=== PATIENT | male | born 1965 | race Caucasian/White ===

== ENCOUNTER 2019-01-04 13:57 | Emergency (ER) | payer OTHER ==
[~2019-01-04] VITALS: Ht 170.2 cm; Wt 81.6 kg
[2019-01-04 14:05] VITALS: BP 143/76
--- NOTE | 2019-01-04 14:10 | NUR ---
PATIENT AMBULATED TO ER BED 2.
[2019-01-04] MEDS ORDERED: NACL 0.9% 1,000 ML IV ONE (14:15)
[2019-01-04] MEDS ORDERED: ALBUTEROL SULFATE/IPRATROPIU 3 ML SOL IH ONE (14:20)
--- NOTE | 2019-01-04 14:20 | NUR ---
FLU SWAB COLLECTED AND SENT TO LAB.
--- NOTE | 2019-01-04 14:25 | NUR ---
PT IS A 53 Y/O MALE WHO PRESENTS TO THE ED C/O GEN WEAKNESS. PT STATES THAT IT HAS BEEN GOING ON X4 DAYS, IT STARTED WITH CONSTANT COUGH, WITH RUNNY NOSE. LUNG SOUNDS DIMINISHED IN BILATERAL BASES. PT ALSO REPORTS FEELING BLOATED, LAST BM: 01/02/19. PT DENIES CP, N/V/D. PT AWAKE AND ALERT, RR EVEN/UNLABORED. PT REPOSITIONED FOR COMFORT, BED IN LOWEST POSITION. ER MD DR. ARELLANO NOTIFIED. WILL CONTINUE TO MONITOR PMH: NONE
[2019-01-04 14:31] LABS: BASOPHILS % (AUTO) 0.5 % (0.0-2.0); EOSINOPHILS % (AUTO) 0.3 % (0.0-4.0); HEMATOCRIT 46.8 % (36-52); HEMOGLOBIN 15.4 g/dL (12.0-18.0); LYMPHOCYTES # (AUTO) 0.8 K/uL (2.0-11.5); MEAN CORPUSCULAR HEMOGLOBIN 29 pg (27-31); MEAN CORPUSCULAR HGB CONC 33 g/dL (33-37); MEAN CORPUSCULAR VOLUME 88.4 fL (80-94); MONOCYTES # (AUTO) 0.9 K/uL (0.8-1.0); NEUTROPHILS # (AUTO) 3.6 K/uL (1.8-7.7); NEUTROPHILS % (AUTO) 67.2 % (42.2-75.2); PLATELET COUNT (AUTO) 255 K/uL (140-450); RED BLOOD CELL COUNT(AUTO) 5.29 MIL/uL (4.20-6.10); RED CELL DISTRIBUTION WIDTH 13.3 % (11.6-13.7); WHITE BLOOD COUNT (AUTO) 5.4 K/uL (4.8-10.8)
--- NOTE | 2019-01-04 14:35 | NUR ---
RT AT BEDSIDE FOR INTERVENTION.
[2019-01-04 14:46] LABS: ANION GAP 14.1 (8-16); CARBON DIOXIDE 24.7 mmol/L (21-32); POTASSIUM 3.8 mmol/L (3.5-5.1)
[2019-01-04 14:52] LABS: ALBUMIN 3.3 g/dL (3.4-5.0); TOTAL BILIRUBIN 0.2 mg/dL (0.0-1.0)
--- NOTE | 2019-01-04 15:42 | NUR ---
RETOOK PT VITALS, PT HAD TEMP OF 101.5, ER MD DR. ARELLANO MADE AWARE, OK TO DISCHARGE. NO MEDS GIVEN.
[2019-01-04 15:44] VITALS: BP 141/84
--- NOTE | 2019-01-04 15:44 | NUR ---
Patient discharged with v/s stable. Written and verbal after care instructions given and explained. Patient alert, oriented and verbalized understanding of instructions. Ambulatory with steady gait. All questions addressed prior to discharge. ID band removed. Patient advised to follow up with PMD. Rx of ALBUTEROL 90MCG, PREDNISONE 50MG AND AZITHROMYCIN 250MG given. Patient educated on indication of medication including possible reaction and side effects. Opportunity to ask questions provided and answered.
== END 2019-01-04 15:44 | disposition home or self-care (01) ==
LOC: MED 13:57
DX: J20.9 Acute bronchitis, unspecified (principal); F17.200 Nicotine dependence, unspecified, uncomplicated
CPT/HCPCS: 36415; 71045; 80053; 85025; 87804; 94640; 99284; J7030; J7620; Q0092

== ENCOUNTER 2023-02-16 16:08 | Inpatient (IN) | payer BC, OTHER ==
[~2023-02-16] VITALS: Ht 170.2 cm; Wt 81.6 kg
[2023-02-16 16:16] VITALS: BP 157/89
--- NOTE | 2023-02-16 17:08 | NUR ---
Patient arrived to ED 5 for c/o shortness of breath. Patient said yesterday he had some issues breathing yesterday and took inhaler for albuterol yesterday it helped. Patient said he tried taking today and it did not help. at bedside to MSE patient. Will continue to monitor. Call light within reach.
--- NOTE | 2023-02-16 17:20 | NUR ---
Dr. Bautista at bedside to MSE patient.
[2023-02-16] MEDS ORDERED: cefTRIAXone 1,000 MG in DEXT 5% MINI-BAG PLUS 50 ML IV ONE (17:25)
[2023-02-16] MEDS ORDERED: ALBUTEROL 0.083% 2.5 MG/3 ML NEBU INH ONE (17:25)
[2023-02-16] MEDS ORDERED: NACL 0.9% 2,000 ML IV SCH (17:25)
[2023-02-16] MEDS ORDERED: IPRATROPIUM 0.02% 0.5 MG/2.5 ML NEBU INH ONE (17:25)
[2023-02-16] MEDS ORDERED: methylPREDNISolone SS 125 MG/2 ML VIAL IVP ONE (17:25)
[2023-02-16 17:46] LABS: BASOPHILS % (AUTO) 0.3 % (0.0-2.0); EOSINOPHILS % (AUTO) 0.1 % (0.0-4.0); HEMATOCRIT 43.2 % (36-52); HEMOGLOBIN 14.5 g/dL (12.0-18.0); LYMPHOCYTES # (AUTO) 0.9 K/uL (2.0-11.5); LYMPHOCYTES % (AUTO) 6.4 % (20.5-51.1); MEAN CORPUSCULAR HEMOGLOBIN 30 pg (27-31); MEAN CORPUSCULAR HGB CONC 34 g/dL (33-37); MEAN CORPUSCULAR VOLUME 87.6 fL (80-94); MONOCYTES # (AUTO) 1.6 K/uL (0.8-1.0); MONOCYTES % (AUTO) 10.7 % (1.7-9.3); NEUTROPHILS % (AUTO) 82.5 % (42.2-75.2); PLATELET COUNT (AUTO) 273 K/uL (140-450); RED BLOOD CELL COUNT(AUTO) 4.93 MIL/uL (4.20-6.10); RED CELL DISTRIBUTION WIDTH 13.9 % (11.6-13.7); WHITE BLOOD COUNT (AUTO) 14.6 K/uL (4.8-10.8)
--- NOTE | 2023-02-16 17:49 | NUR ---
X-RAY AT BEDSIDE.
[2023-02-16] MEDS ORDERED: cefTRIAXone 1,000 MG VIAL ONE (17:56)
[2023-02-16 18:07] LABS: ALBUMIN 3.5 g/dL (3.4-5.0); ANION GAP 14.1 (8-16); CARBON DIOXIDE 26.9 mmol/L (21-32); CREATININE 0.8 mg/dL (0.6-1.3); TOTAL BILIRUBIN 0.5 mg/dL (0.0-1.0)
--- NOTE | 2023-02-16 19:11 | NUR ---
SARAH AND FLU SWABS OBTAINED, WALKED TO LAB.
--- NOTE | 2023-02-16 19:32 | NUR ---
Report given to mold shifter RN for continuity of care. Patient in stable condition.
--- NOTE | 2023-02-16 19:34 | NUR ---
Report given to carpenter apprentice RN for continuity of care. Patient in stable condition.
--- NOTE | 2023-02-16 20:09 | NUR ---
REPOR FR MCMANUS RN, PT STS HES FEELING BETTER, PT AND UPDATED WITH PLAN OF CARE
[2023-02-16] MEDS ORDERED: AZITHROMYCIN 500 MG in DEXTROSE 5% 250 ML IV SCH (20:35)
[2023-02-16] MEDS ORDERED: HYDROcodone/APAP 7.5/325 MG 1 TAB PO PRN (20:35)
[2023-02-16] MEDS ORDERED: ZOLPIDEM 5 MG TAB PO PRN (20:35)
[2023-02-16] MEDS ORDERED: POTASSIUM CHLORIDE 10 MEQ TABER PO PRN (20:35)
[2023-02-16] MEDS ORDERED: ONDANSETRON 4 MG/2 ML VIAL IM/IVP PRN (20:35)
[2023-02-16] MEDS ORDERED: ACETAMINOPHEN 325 MG TAB PO PRN (20:35)
[2023-02-16] MEDS ORDERED: DOCUSATE SODIUM 100 MG GELCAP PO PRN (20:35)
[2023-02-16] MEDS ORDERED: guaiFENesin DM 200/20 MG-10 ML 10 ML UDC PO PRN (20:35)
[2023-02-16 21:55] LABS: APPEARANCE,URINE CLEAR (CLEAR); BILIRUBIN,URINE NEGATIVE (NEGATIVE); BLOOD, URINE 1+ (NEGATIVE); COLOR,URINE YELLOW (YELLOW); LEUKOCYTE ESTERASE ,URINE NEGATIVE (NEGATIVE); NITRITE, URINE NEGATIVE (NEGATIVE); UGLUCOSE NEGATIVE (NEGATIVE)
[2023-02-16 22:14] LABS: BARBITURATE, URINE NEGATIVE ng/ml (NEG <=200); BENZODIAZEPINE, URINE NEGATIVE ng/mL (NEG <=200); CANNABINOID, URINE NEGATIVE ng/mL (NEG <=50); COCAINE, URINE NEGATIVE ng/mL (NEG <=300); OPIATE, URINE NEGATIVE ng/mL (NEG <=2000); PHENCYCLIDINE SCREEN,URINE NEGATIVE ng/mL (NEG <=25)
[2023-02-16 22:31] LABS: AMYLASE 19 U/L (25-115); LIPASE 54 U/L (73-393); MAGNESIUM 2.1 mg/dL (1.8-2.4); PHOSPHORUS 3.3 mg/dL (2.5-4.9); THYROID STIMULATING HORMONE 0.64 uIU/mL (0.34-3.74)
[2023-02-16 22:33] LABS: PROTHROMBIN TIME 11.2 secs (10.8-13.4)
[2023-02-16 22:33] LABS: WBC,URINE NONE SEEN /HPF (0-5)
--- NOTE | 2023-02-16 22:44 | NUR ---
Patient will be admitted to care of [facility]. Admited to TELE . Will go to [id number]. Belongings list completed. Report to CASANDRA VALERO.
[2023-02-16] MEDS ORDERED: AZITHROMYCIN 500 MG INJ VIAL IV ONE (23:16)
--- NOTE | 2023-02-16 23:55 | NUR ---
Patient's Plan of Care was discussed and reviewed with GLENN GUAJARDO:
--- NOTE | 2023-02-16 23:55 | NUR ---
RECEIVED REPORT FROM ER NURSE FOR CONTINUITY OF CARE. PT IS A&O X4, EXPERIENCING SOB WHEN WALKING TO THE BATHROOM AND BED. CURRENTLY ON 2L NASAL CANULA. PT HAS IV SITE LOCATED AT LEFT AC 20 GAUGE, INTACT AND PATENT. PT STABLE AT THIS TIME, WILL MONITOR FREQUENTLY THROUGHOUT SHIFT.
[2023-02-17] VITALS: BP 158/88
[2023-02-17] MEDS: methylPREDNISolone SS 40 MG/ML VIAL IVP SCH ×5 (00:06→23:18)
--- NOTE | 2023-02-17 03:37 | NUR ---
PT ASLEEP. BREATH SOUNDS LABORED. NOTICEABLE CHEST RISE AND FALL. NO APPARENT SIGNS OF DISTRESS NOTED. WILL CONTINUE MONITORING THE PT.
[2023-02-17 04:00] VITALS: BP 138/81
--- NOTE | 2023-02-17 05:41 | NUR ---
BS COURSE. SOB ON EXERTION POST BATHROOM USE. ADVISED PT TO USE URINAL INSTEAD OF WALKING TO THE BATHROOM WITH NO O2. PT STABLE ON 2L WITH SPO2 95% AT REST.
--- NOTE | 2023-02-17 06:41 | NUR ---
PT SLEPT WELL THROUGHOUT SHIFT, WILL ENDORSE TO DAY SHIFT NURSE FOR CONTINUITY OF CARE.
--- NOTE | 2023-02-17 07:10 | NUR ---
RECEIVED REPORT FROM NIGHTSHIFT NURSE CASANDRA FOR CONTINUITY OF CARE. PT IN STABLE CONDITION.
[2023-02-17 07:23] LABS: HEMATOCRIT 45.3 % (36-52); HEMOGLOBIN 15.1 g/dL (12.0-18.0); LYMPHOCYTES # (AUTO) 0.6 K/uL (2.0-11.5); LYMPHOCYTES % (AUTO) 4.3 % (20.5-51.1); MEAN CORPUSCULAR HEMOGLOBIN 29 pg (27-31); MEAN CORPUSCULAR HGB CONC 33 g/dL (33-37); MEAN CORPUSCULAR VOLUME 88.1 fL (80-94); MONOCYTES # (AUTO) 0.3 K/uL (0.8-1.0); MONOCYTES % (AUTO) 1.8 % (1.7-9.3); NEUTROPHILS # (AUTO) 13.5 K/uL (1.8-7.7); PLATELET COUNT (AUTO) 312 K/uL (140-450); RED BLOOD CELL COUNT(AUTO) 5.14 MIL/uL (4.20-6.10); WHITE BLOOD COUNT (AUTO) 14.3 K/uL (4.8-10.8)
[2023-02-17 07:39] LABS: CREATININE 0.7 mg/dL (0.6-1.3); POTASSIUM 3.9 mmol/L (3.5-5.1)
[2023-02-17 07:45] LABS: CARBON DIOXIDE 26.9 mmol/L (21-32)
[2023-02-17 08:00] VITALS: BP 130/78
[2023-02-17 08:12] LABS: NEUTROPHILS % (AUTO) 93.9 % (42.2-75.2)
[2023-02-17] MEDS: PANTOPRAZOLE 40 MG TABEC PO SCH (08:17)
--- NOTE | 2023-02-17 08:17 | NUR ---
PT DENIED PAIN OR CHEST PAIN AND SOB HAS LESSENED; HOWEVER, WHEEZING STILL PROMINENT ON INHALATION/EXHALATION.
--- NOTE | 2023-02-17 10:30 | NUR ---
DR. NELSON IN TO SEE PT. NEW ORDERS FOR Q6H BREATHING TX PLACED.
[2023-02-17] MEDS ORDERED: AZITHROMYCIN 500 MG in DEXTROSE 5% 250 ML IV SCH ×2 (10:40→21:00)
[2023-02-17 12:00] VITALS: BP 153/92
--- NOTE | 2023-02-17 12:30 | NUR ---
PT CURRENTLY SLEEPING, NO SIGNS OF DISTRESS NOTED AT TIME.
[2023-02-17] MEDS: ALBUTEROL SULFATE/IPRATROPIU 3 ML SOL IH SCH ×2 (13:54→19:00)
--- NOTE | 2023-02-17 14:30 | NUR ---
PT DENIES PAIN AT THIS TIME, PT ENDORSED LESS DIFFICULTY BREATHING
[2023-02-17 16:00] VITALS: BP 119/76
--- NOTE | 2023-02-17 16:50 | NUR ---
PT CURRENTLY SLEEPING, NO SIGN OR PAIN OR DISTRESS.
--- NOTE | 2023-02-17 18:50 | NUR ---
PT IV WAS PARTIALLY OUT OF ARM, NO BLEEDING NOTED WHEN REMOVED. NEW 20G IV PLACE ON RIGHT AC.
--- NOTE | 2023-02-17 19:07 | NUR ---
RECEIVED REPORT FROM DAY SHIFT NURSE FOR CONTINUITY OF CARE. PT AWAKE AT THIS TIME, FAMILY AT BEDSIDE. REPORTS EXPERIENCING LESS EPISODES OF SOB, STATES HE IS READY TO GO HOME. STILL ON 2L NC, SATING AT 96%. WILL CONTINUE WITH COMFORT CARE. PT POSSIBLE DC TOMORROW WITH INHALER/STEROIDS.
--- NOTE | 2023-02-17 19:16 | NUR ---
ENDORSED PT TO NIGHTSHIFT NURSE CASANDRA Martin FOR CONTINUITY OF CARE. PT IN STABLE CONDITION.
[2023-02-17 20:00] VITALS: BP 119/67
--- NOTE | 2023-02-17 20:00 | NUR ---
Patient's Plan of Care was discussed and reviewed with CASANDRA ELIZABETH:
--- NOTE | 2023-02-17 23:22 | NUR ---
PT ASLEEP AT THIS TIME. ZITHROMAX IV INFUSING WITH NO COMPLICATIONS. WILL FLUSH LINE WHEN COMPLETE.
[2023-02-18] VITALS: BP 141/87
[2023-02-18] MEDS: ALBUTEROL SULFATE/IPRATROPIU 3 ML SOL IH SCH ×2 (00:51→08:25)
--- NOTE | 2023-02-18 02:36 | NUR ---
MAKING ROUNDS, PT SITTING AT BEDSIDE, STATES HE WANTED TO SEE IF HE WOULD FEEL DIZZY. REPORTS NO DIZZINESS. WILL CONTINUE MONITORING THE PT.
[2023-02-18 04:00] VITALS: BP 138/90
[2023-02-18] MEDS: methylPREDNISolone SS 40 MG/ML VIAL IVP SCH ×2 (05:06→12:31)
[2023-02-18 06:39] LABS: BASOPHILS % (AUTO) 0.1 % (0.0-2.0); HEMATOCRIT 42.6 % (36-52); HEMOGLOBIN 14.3 g/dL (12.0-18.0); LYMPHOCYTES # (AUTO) 0.7 K/uL (2.0-11.5); LYMPHOCYTES % (AUTO) 5.2 % (20.5-51.1); MEAN CORPUSCULAR HEMOGLOBIN 30 pg (27-31); MEAN CORPUSCULAR HGB CONC 34 g/dL (33-37); MEAN CORPUSCULAR VOLUME 88.2 fL (80-94); MONOCYTES # (AUTO) 0.6 K/uL (0.8-1.0); MONOCYTES % (AUTO) 4.2 % (1.7-9.3); NEUTROPHILS # (AUTO) 12.4 K/uL (1.8-7.7); NEUTROPHILS % (AUTO) 90.5 % (42.2-75.2); PLATELET COUNT (AUTO) 312 K/uL (140-450); RED BLOOD CELL COUNT(AUTO) 4.83 MIL/uL (4.20-6.10); RED CELL DISTRIBUTION WIDTH 13.4 % (11.6-13.7); WHITE BLOOD COUNT (AUTO) 13.7 K/uL (4.8-10.8)
--- NOTE | 2023-02-18 06:52 | NUR ---
PT STABLE AT THIS TIME. NO ACUTE EVENTS OVER NIGHT. WILL ENDORSE TO DAY SHIFT NURSE FOR CONTINUITY OF CARE.
[2023-02-18 06:56] LABS: ANION GAP 13.7 (8-16); CARBON DIOXIDE 28.3 mmol/L (21-32); CREATININE 0.6 mg/dL (0.6-1.3)
--- NOTE | 2023-02-18 07:10 | NUR ---
RECEIVED PT FROM GRIPPER ATTACHER NURSE FOR CONTINUITY OF CARE. PT IS SLEEPING VISIBLE CHEST RISE AND FALL. RESPIRATIONS EVEN AND UNLABORED ON 2L NC. NO DISTRESS NOTED. IV ON RAC 20G. CALL LIGHT WITHIN REACH. ALL SAFETY PRECAUTIONS IN PLACE.
--- NOTE | 2023-02-18 07:59 | NUR ---
PATIENT HAS BEEN SCREENED AND CATEGORIZED MODERATE NUTRITION RISK. PATIENT WILL BE SEEN WITHIN 3-5 DAYS OF ADMISSION. 02/16/23-02/21/[address]
[2023-02-18 08:00] VITALS: BP 133/87
[2023-02-18] MEDS: PANTOPRAZOLE 40 MG TABEC PO SCH (08:44)
--- NOTE | 2023-02-18 08:45 | NUR ---
ADMINISTERED SCHEDULED MED AND PRN ROBITUSSIN FOR COUGH. PT TOLERATING WELL.
--- NOTE | 2023-02-18 09:13 | NUR ---
MAKING ROUNDS PT OFF OXYGEN WALKING AROUND ROOM AND TALKING TO NEIGHBOR. PT STATES HE DOES NOT USE OXYGEN AT HOME. DENIES ANY SOB.
[2023-02-18] MEDS ORDERED: ALBU0.0912 IH (10:18)
[2023-02-18] MEDS ORDERED: PRED20TA5 PO (10:18)
[2023-02-18] MEDS ORDERED: LEVO-481 PO (10:18)
[2023-02-18] MEDS ORDERED: NICO1PAT16 TD (10:19)
[2023-02-18 12:00] VITALS: BP 141/83
[2023-02-18 12:30] VITALS: BP 141/83
[2023-02-18] MEDS ORDERED: NICOTINE TRANSD SYS 14 MG/24 HR PATCH TD SCH (12:30)
--- NOTE | 2023-02-18 13:11 | NUR ---
Patient's Plan of Care was discussed and reviewed with LIFE ENRICHMENT SPECIALIST:
--- NOTE | 2023-02-18 13:35 | NUR ---
DISCUSSED DISCHARGE PACKET WITH PT AND AT BEDSIDE. ALL QUESTIONS ANSWERED. PT GATHERED BELONGINGS AND PACKED THEM IN [place]. REMOVED IV AND NAME BAND. PT IN STABLE CONDITION, [facility]UL[facility] TO [facility] . DC TO HOME.
== END 2023-02-18 13:35 | disposition home or self-care (01) | DRG 189 ==
LOC: MED 16:08 → MTU 20:49
PROVIDERS: ADMIT Student in an Organized Health Care Education/Training Program; ATTEND Student in an Organized Health Care Education/Training Program
DX: J96.01 Acute respiratory failure with hypoxia (principal); J44.1 Chronic obstructive pulmonary disease with (acute) exacerbation; F17.210 Nicotine dependence, cigarettes, uncomplicated; F10.10 Alcohol abuse, uncomplicated; Y90.9 Presence of alcohol in blood, level not specified; Z20.822 Contact with and (suspected) exposure to COVID-19
CPT/HCPCS: 36415; 71045; 80048; 80053; 80305; 81001; 82150; 82550; 83036; 83605; 83690; 83735; 83880; 84100; 84443; 84484; 85025; 85610; 85730; 87040; 87081; 87086; 93005; 94640; J0456; J0696; J2920; J2930; J7060; J7613; J7644; Q0092